=== PATIENT | male | born 1980 | race Caucasian/White ===

== ENCOUNTER 2023-04-03 08:25 | Outpatient (CLI) | payer OTHER, SELFPAY ==
--- NOTE | 2023-04-12 14:25 | WPDHOMESLEEP ---
Sleep Study - Home Unattended Date of Study: 04/03/23 Ordering Provider: Francia Davis NP Interpreting Provider: Carine Kapoor, DO Home Sleep Study Type: Watch PAT Height: 1.78 m Weight: 102.058 kg Body Mass Index: 32.3 Neck Circumference (inches): 17.25 Yulan: 4 Reason for Sleep Study Snoring, daytime hypersomnia Sleep History The patient is a 42-year-old male with hypertension and current tobacco use that had a sleep study ordered by his primary care for evaluation of sleep apnea. The patient rarely awakens from sleep short of breath. He occasionally awakens at night with heartburn, belching or cough. He frequently snores and is frequently loud enough others complain. He frequently has trouble sleeping when he has a cold. He denies waking up gasping for air throughout the night. He rarely has breathing problems at night observed by himself or others. He occasionally sweats excessively at night. Occasionally has heart palpitations irregular heartbeats during night he rarely falls asleep during the day and never while driving. He denies cataplexy. He denies having trouble at school or work due to sleepiness. He rarely feels unable to move waking up or falling asleep. He rarely experiences vivid dreamlike scenes upon awakening or falling asleep. He denies feeling afraid of going to sleep. He rarely has nightmares. He occasionally remembers his dreams. He rarely has thoughts racing through his mind. He rarely feels sad, depressed or anxious. He denies having muscular tension. He denies noticing parts of his body jerk. He denies kicking during the night. He denies having crawling and aching feelings in his legs and denies having leg pain during the night. He denies grinding his teeth during sleep and denies awakening with morning jaw pain. He denies being bothered by pain during the day and denies being awakened by pain during the night. He denies waking up feeling stiff morning. He rarely wakes with sore or achy muscles. He denies waking up with pain in the neck, spine or other joints. He goes to bed at 10:00 p.m. on weekdays and 11:00 p.m. on the weekends. He is able to fall asleep within a few minutes. He wakes up twice throughout the night and is able to fall back asleep relatively quickly. He wakes up at 6:00 a.m. on weekdays and 7:00 a.m. on the weekends. He typically gets 8 hours of sleep per night. He will stay in bed for 30 minutes after waking up in the morning. He currently lives with his and children. He denies consuming any caffeinated beverages within 2 hours of bedtime. He denies engaging in physical exercise before bedtime. He will watch television before falling asleep. He denies taking naps in the afternoon or the evening. He consumes 20 oz of coffee per day. He does consume alcoholic beverages. He does use tobacco products. He denies recreational drug use. [facility] Social History Social History Smoking status: Current some day smoker Alcohol intake: current Alcohol use details: beer Substance use: never Lack of Transportation: No Lack of Food: Never True Current Housing: I Have Housing Concerned About Future Housing: No Difficulty Paying Gas/Electric Bills: No Difficulty Paying for Meds: No Currently Unemployed: No Education: Associate Degree Difficulty w/ Childcare or Family Care: No Medications Home Medications Medication Instructions Recorded Confirmed Type doxycycline hyclate 100 mg tablet 100 mg PO BID #20 tabs 02/14/23 02/14/23 Rx lisinopril 10 mg tablet 10 mg PO DAILY #90 tabs 02/14/23 02/14/23 Rx Sleep Procedure The sleep study was completed using [employer] a technically adequate device with seven channels: peripheral arterial tone, actigraphy, body position, snore, respiratory movement, pulse oximetry, sleep staging, and heart rate. Prior to using the device, the patient rece
[2023-04-12 14:29] VITALS: BMI 32.3
--- NOTE | 2023-06-27 09:29 | SLEEP ---
NO FURTHER AHI 2
== END 2023-04-04 10:21 | disposition home or self-care (01) ==
LOC: ANHCSM 08:26
PROVIDERS: PCP Nurse Practitioner; Visit Provider Nurse Practitioner
DX: G47.19 Other hypersomnia (principal)
CPT/HCPCS: 95800